=== PATIENT | female | born 1990 | race Caucasian/White ===

== ENCOUNTER 2017-03-12 01:51 | Emergency (ER) | payer OTHER ==
[~2017-03-12] VITALS: Ht 160 cm; Wt 61.2 kg
[2017-03-12] MEDS ORDERED: KETOROLAC TROMETH 30 MG/ML 1ML VIAL ONE (02:19)
[2017-03-12 03:34] LABS: Basophils # (auto) 0.1 uL; Basophils % (auto) 0.7 % (0.0-2.0); Eosinophils # (auto) 0.3 uL; Eosinophils % (auto) 3.4 % (0.0-7.0); Hematocrit 41.9 % (36.0-46.0); Hemoglobin 14.4 g/dL (12.2-16.2); Lymphocytes # (auto) 2.1 uL; Lymphocytes % (auto) 27.2 % (10.0-50.0); Mean Corpuscular Hemoglobin 32.1 pg (28.0-32.0); Mean Corpuscular Hgb Conc. 34.3 g/dL (32.0-36.0); Mean Corpuscular Volume 93.7 fL (80.0-100.0); Mean Platelet Volume 9.6 fL (6.9-10.8); Monocytes # (auto) 1.1 uL; Monocytes % (auto) 14.1 % (0.0-12.0); Neutrophils # (auto) 4.2 uL; Neutrophils % (auto) 54.6 % (37.0-80.0); Nucleated Red Blood Cells % 0.1 %; Platelet Count (auto) 207 10^3/uL (140-450); Red Cell Distribution Width 11.8 % (11.8-14.3); White Blood Cell 7.6 10^3/uL (4.4-10.8)
[2017-03-12] MEDS ORDERED: ONDANSETRON HCL 4 MG/2 ML VIAL ONE (03:36)
[2017-03-12 03:45] LABS: Urine Bilirubin Negative (Negative); Urine Blood 1+ /uL (Negative); Urine Color Yellow (Yellow); Urine Glucose Normal (Normal); Urine Ketone Negative (Negative); Urine Mucus FEW (None Seen); Urine Nitrite Negative (Negative); Urine RBC 24 /hpf (0 - 4); Urine Squamous Epithelial Cell MOD /hpf (<5); Urine Urobilinogen Normal (Negative); Urine pH 6.5 (5.0-8.0)
[2017-03-12] MEDS ORDERED: SODIUM CHLORIDE 0.9% 1,000 ML IV ONE (03:45)
[2017-03-12 03:54] LABS: Albumin 4.1 g/dL (3.4-5.0); Calcium 9.1 mg/dL (8.5-10.1); Potassium 3.4 mmol/L (3.5-5.1)
[2017-03-12 03:56] LABS: Bilirubin, Total 0.3 mg/dL (0.2-1.0); Total Protein 7.7 g/dL (6.4-8.2)
[2017-03-12] MEDS ORDERED: HYDROmorphone HCL 2 MG/ML VL IV ONE ×2 (04:00→05:45)
[2017-03-12] MEDS ORDERED: cefTRIAXone 1GM/50ML D5W 50 ML IV ONE ×2 (04:45→04:52)
[2017-03-12] MEDS ORDERED: TAMSULOSIN HYDROCHLORIDE 0.4 MG CAP PO ONE (04:45)
[2017-03-12 05:35] VITALS: BP 105/71
== END 2017-03-12 06:08 | disposition home or self-care (01) ==
LOC: ER 01:52
DX: N39.0 Urinary tract infection, site not specified (principal); K59.00 Constipation, unspecified; N20.0 Calculus of kidney
CPT/HCPCS: 36415; 74176; 80053; 81001; 81025; 85025; 96361; 96365; 96375; 99285; J0696; J1170; J1885; J2405; J7030

== ENCOUNTER 2017-03-15 01:53 | Inpatient (IN) | payer OTHER ==
[2017-03-15] VITALS (9 sets, daily range): BP systolic 100–120; BP diastolic 62–76
[~2017-03-15] VITALS: Ht 160 cm; Wt 64.4 kg
[2017-03-15] MEDS ORDERED: SODIUM CHLORIDE 0.9% 1,000 ML IV SCH (02:30)
[2017-03-15] MEDS ORDERED: HYDROcodone-ACET 5/325MG TAB PO PRN (02:30)
[2017-03-15] MEDS ORDERED: TEMAZEPAM 15 MG CAP PO PRN (02:30)
[2017-03-15] MEDS ORDERED: ACETAMINOPHEN 325 MG TAB PO PRN (02:30)
[2017-03-15] MEDS ORDERED: IBUP800T24 PO (04:03)
[2017-03-15 04:31] LABS: Urine Bilirubin Negative (Negative); Urine Blood 2+ /uL (Negative); Urine Color Yellow (Yellow); Urine Glucose Normal (Normal); Urine Ketone TRACE (Negative); Urine Mucus FEW (None Seen); Urine Nitrite Negative (Negative); Urine RBC 38 /hpf (0 - 4); Urine Squamous Epithelial Cell FEW /hpf (<5); Urine Urobilinogen Normal (Negative)
[2017-03-15 06:34] LABS: Basophils # (auto) 0 uL; Basophils % (auto) 0.3 % (0.0-2.0); Eosinophils # (auto) 0.2 uL; Eosinophils % (auto) 2.5 % (0.0-7.0); Hematocrit 38.2 % (36.0-46.0); Hemoglobin 13.1 g/dL (12.2-16.2); Mean Corpuscular Hemoglobin 32.1 pg (28.0-32.0); Mean Corpuscular Hgb Conc. 34.2 g/dL (32.0-36.0); Mean Corpuscular Volume 93.7 fL (80.0-100.0); Mean Platelet Volume 9.1 fL (6.9-10.8); Monocytes # (auto) 1.1 uL; Monocytes % (auto) 14.5 % (0.0-12.0); Neutrophils # (auto) 5.3 uL; Neutrophils % (auto) 69.7 % (37.0-80.0); Platelet Count (auto) 158 10^3/uL (140-450); Red Cell Distribution Width 11.7 % (11.8-14.3); White Blood Cell 7.6 10^3/uL (4.4-10.8)
[2017-03-15 06:44] LABS: Albumin 3.5 g/dL (3.4-5.0); BUN/Creatinine Ratio 8.7; Bilirubin, Total 0.4 mg/dL (0.2-1.0); Calcium 8.3 mg/dL (8.5-10.1); Potassium 3.6 mmol/L (3.5-5.1); Total Protein 6.9 g/dL (6.4-8.2)
[2017-03-15] MEDS: KETOROLAC TROMETH 30 MG/ML 1ML VIAL IV PRN ×2 (08:51→20:31)
[2017-03-15] MEDS: FAMOTIDINE 20 MG TAB PO SCH ×2 (08:52→21:37)
[2017-03-15] MEDS: cefTRIAXone 1GM/50ML D5W 50 ML IV SCH (08:52)
[2017-03-15] MEDS: ONDANSETRON HCL 4 MG/2 ML VIAL IV PRN ×2 (08:56→17:46)
[2017-03-15] MEDS: SODIUM CHLORIDE 0.9% 1,000 ML IV SCH ×3 (11:17→23:05)
[2017-03-15] MEDS ORDERED: MILK OF MAGNESIA 30ML SUSP PO ONE (13:45)
[2017-03-15] MEDS ORDERED: traMADol HCL 50 MG TAB PO PRN (14:15)
[2017-03-15] MEDS: IBUPROFEN 800 MG TAB PO PRN (14:32)
[2017-03-15] MEDS: DOCUSATE SOD 100 MG CAP PO PRN (16:53)
[2017-03-15] MEDS ORDERED: OXYCODONE W/ ACETAMINOPHEN 5/325MG TABLET PO PRN (17:00)
[2017-03-16 04:55] VITALS: BP 106/79
[2017-03-16] MEDS: SODIUM CHLORIDE 0.9% 1,000 ML IV SCH ×2 (06:03→11:27)
[2017-03-16 06:34] LABS: Basophils # (auto) 0 uL; Basophils % (auto) 0.6 % (0.0-2.0); Eosinophils # (auto) 0.3 uL; Eosinophils % (auto) 4.9 % (0.0-7.0); Hematocrit 34.8 % (36.0-46.0); Lymphocytes # (auto) 1.2 uL; Lymphocytes % (auto) 18.7 % (10.0-50.0); Mean Corpuscular Hemoglobin 32.3 pg (28.0-32.0); Mean Corpuscular Hgb Conc. 34.5 g/dL (32.0-36.0); Mean Corpuscular Volume 93.5 fL (80.0-100.0); Mean Platelet Volume 9.3 fL (6.9-10.8); Monocytes # (auto) 0.9 uL; Monocytes % (auto) 14.2 % (0.0-12.0); Neutrophils # (auto) 3.9 uL; Neutrophils % (auto) 61.6 % (37.0-80.0); Platelet Count (auto) 129 10^3/uL (140-450); Red Cell Distribution Width 11.8 % (11.8-14.3); White Blood Cell 6.3 10^3/uL (4.4-10.8)
[2017-03-16 06:55] LABS: BUN/Creatinine Ratio 10.3; Calcium 8.1 mg/dL (8.5-10.1); Potassium 4.1 mmol/L (3.5-5.1)
[2017-03-16] MEDS: cefTRIAXone 1GM/50ML D5W 50 ML IV SCH (08:26)
[2017-03-16] MEDS: KETOROLAC TROMETH 30 MG/ML 1ML VIAL IV PRN (08:26)
[2017-03-16] MEDS: FAMOTIDINE 20 MG TAB PO SCH ×2 (08:27→21:22)
[2017-03-16] MEDS: ONDANSETRON HCL 4 MG/2 ML VIAL IV PRN ×2 (08:27→15:16)
[2017-03-16 09:20] VITALS: BP 117/69
[2017-03-16] MEDS ORDERED: TAMSULOSIN HYDROCHLORIDE 0.4 MG CAP PO ONE (11:00)
[2017-03-16 12:59] VITALS: BP 127/63
[2017-03-16] MEDS: POTASSIUM CHLORIDE 20 MEQ in D5W/LACTATED RINGERS 1,000 ML IV SCH (15:39)
[2017-03-16 17:01] VITALS: BP 112/71
[2017-03-16] MEDS: TAMSULOSIN HYDROCHLORIDE 0.4 MG CAP PO SCH (17:56)
[2017-03-16] MEDS: FUROSEMIDE 20 MG TAB PO SCH (17:57)
[2017-03-16] MEDS: IBUPROFEN 800 MG TAB PO PRN (19:26)
[2017-03-16 22:00] VITALS: BP 106/58
[2017-03-17] MEDS: POTASSIUM CHLORIDE 20 MEQ in D5W/LACTATED RINGERS 1,000 ML IV SCH ×4 (02:05→21:52)
[2017-03-17 05:00] VITALS: BP 103/63
[2017-03-17] MEDS: FUROSEMIDE 20 MG TAB PO SCH ×2 (05:36→17:35)
[2017-03-17 09:05] VITALS: BP 118/69
[2017-03-17] MEDS: cefTRIAXone 1GM/50ML D5W 50 ML IV SCH (10:12)
[2017-03-17] MEDS: FAMOTIDINE 20 MG TAB PO SCH ×2 (10:12→21:17)
[2017-03-17] MEDS: DOCUSATE SOD 100 MG CAP PO PRN (10:12)
[2017-03-17] MEDS ORDERED: traMADol HCL 50 MG TAB PO PRN (10:15)
[2017-03-17] MEDS: ONDANSETRON HCL 4 MG/2 ML VIAL IV PRN ×2 (10:44→15:14)
[2017-03-17 13:00] VITALS: BP 108/77
[2017-03-17 16:46] VITALS: BP 108/75
[2017-03-17] MEDS: IBUPROFEN 800 MG TAB PO PRN (17:24)
[2017-03-17] MEDS ORDERED: PROMETHAZINE HCL 25 MG/ML 1ML IV PRN (17:30)
[2017-03-17] MEDS: TAMSULOSIN HYDROCHLORIDE 0.4 MG CAP PO SCH (17:35)
[2017-03-17 22:00] VITALS: BP 95/58
[2017-03-18] VITALS (7 sets, daily range): BP systolic 95–112; BP diastolic 56–70
[2017-03-18] MEDS: FUROSEMIDE 20 MG TAB PO SCH ×2 (05:35→18:00)
[2017-03-18] MEDS: FAMOTIDINE 20 MG TAB PO SCH (10:00)
[2017-03-18] MEDS: cefTRIAXone 1GM/50ML D5W 50 ML IV SCH (12:15)
[2017-03-18] MEDS: TAMSULOSIN HYDROCHLORIDE 0.4 MG CAP PO SCH (18:00)
[2017-03-18] MEDS: POTASSIUM CHLORIDE 20 MEQ in D5W/LACTATED RINGERS 1,000 ML IV SCH (18:30)
== END 2017-03-18 21:05 | disposition home or self-care (01) | DRG 694 ==
LOC: EAST 01:53
PROVIDERS: ADMIT Internal Medicine; ATTEND Family Medicine
DX: N20.2 Calculus of kidney with calculus of ureter (principal); Z90.49 Acquired absence of other specified parts of digestive tract
CPT/HCPCS: 36415; 74176; 80048; 80053; 81001; 81025; 82360; 85025; 87081; J0696; J1885; J2405

== ENCOUNTER 2018-03-24 14:40 | Emergency (ER) | payer BC, OTHER ==
[~2018-03-24] VITALS: Ht 160 cm; Wt 63.5 kg
[~2018-03-24 14:40] MED LIST: IBUP800T24 PO
[2018-03-24] MEDS ORDERED: SODIUM CHLORIDE 0.9% 1,000 ML IV ONE (14:59)
[2018-03-24] MEDS ORDERED: KETOROLAC TROMETH 30 MG/ML 1ML VIAL IV ONE (15:00)
[2018-03-24] MEDS ORDERED: ONDANSETRON HCL 4 MG/2 ML VIAL IV ONE (15:45)
[2018-03-24 16:00] VITALS: BP 114/68
[2018-03-24 17:36] LABS: Urine Amorphous Crystal FEW /hpf (None Seen); Urine Bacteria NONE SEEN /hpf (None Seen); Urine Blood 1+ /uL (Negative); Urine Specific Gravity 1.011 (1.001-1.035); Urine WBC 1 /hpf (0 - 5)
[2018-03-24 17:38] LABS: Basophils # (auto) 0.1 uL; Basophils % (auto) 0.8 % (0.0-2.0); Eosinophils # (auto) 0.2 uL; Eosinophils % (auto) 3.8 % (0.0-7.0); Hematocrit 43.6 % (36.0-46.0); Hemoglobin 14.7 g/dL (12.2-16.2); Lymphocytes # (auto) 1.5 uL; Lymphocytes % (auto) 23.6 % (10.0-50.0); Mean Corpuscular Hemoglobin 32.1 pg (28.0-32.0); Mean Corpuscular Hgb Conc. 33.7 g/dL (32.0-36.0); Mean Corpuscular Volume 95.1 fL (80.0-100.0); Monocytes # (auto) 0.5 uL; Monocytes % (auto) 7.3 % (0.0-12.0); Neutrophils % (auto) 64.5 % (37.0-80.0); Platelet Count (auto) 201 10^3/uL (140-450); Red Blood Cells 4.59 10^6/uL (4.0-5.20); White Blood Cell 6.2 10^3/uL (4.4-10.8)
[2018-03-24 17:43] LABS: Albumin 4.5 g/dL (3.4-5.0); BUN/Creatinine Ratio 14.1; Calcium 8.9 mg/dL (8.5-10.1); Potassium 3.6 mmol/L (3.5-5.1)
[2018-03-24 17:46] LABS: Bilirubin, Total 0.4 mg/dL (0.2-1.0); Total Protein 8.4 g/dL (6.4-8.2)
== END 2018-03-24 18:22 | disposition home or self-care (01) ==
LOC: ER 14:44
DX: N20.9 Urinary calculus, unspecified (principal); Z90.89 Acquired absence of other organs
CPT/HCPCS: 36415; 74176; 80053; 81001; 81025; 85025; 96374; 96375; 99284; J1885; J2405; J7030

== ENCOUNTER 2018-04-01 13:59 | Emergency (ER) | payer BC ==
[~2018-04-01] VITALS: Ht 160 cm; Wt 63.5 kg
[2018-04-01 14:30] VITALS: BP 129/79
[2018-04-01] MEDS ORDERED: KETOROLAC TROMETH 60MG/2ML VIAL IM ONE (15:15)
[2018-04-01 15:52] LABS: Urine Amorphous Crystal FEW /hpf (None Seen); Urine Bacteria FEW /hpf (None Seen); Urine Blood Negative /uL (Negative); Urine Mucus FEW (None Seen); Urine Specific Gravity 1.025 (1.001-1.035); Urine WBC 12 /hpf (0 - 5)
== END 2018-04-01 16:00 | disposition home or self-care (01) ==
LOC: ER 14:01
DX: D73.4 Cyst of spleen (principal); N20.0 Calculus of kidney; Z90.89 Acquired absence of other organs
CPT/HCPCS: 81001; 96372; 99283; J1885